=== PATIENT | female | born 1960 | race Caucasian/White ===

== ENCOUNTER 2023-11-13 08:31 | Emergency (ER) | payer MEDICAID ==
[~2023-11-13] VITALS: Ht 167.6 cm; Wt 70.3 kg
[~2023-11-13 08:31] MED LIST: LEVSOD75 PO; PSEUDOEPHEDRINE30 M1 PO
[2023-11-13] MEDS ORDERED: Albuterol 2.5 MG/3 ML VIAL INH SCH ×2 (08:55→11:20)
[2023-11-13] MEDS ORDERED: Ipratropium Bromide INH 0.02% 0.5 mg/2.5ML Vial INH SCH ×2 (08:55→11:15)
[2023-11-13] MEDS ORDERED: PRED20 PO (10:05)
[2023-11-13] MEDS ORDERED: PredniSONE 20 MG Tab PO ONE (10:10)
[2023-11-13 10:29] LABS: Influenza A, PCR NEGATIVE (NEGATIVE); Influenza B, PCR NEGATIVE (NEGATIVE); Resp Syncytial Virus, PCR NEGATIVE (NEGATIVE)
[2023-11-13 11:49] LABS: SARS-Cov-2 (COVID-19) PCR, MMC POSITIVE (NEGATIVE)
[2023-11-13] MEDS ORDERED: ALBU90OI INH (12:39)
[2023-11-13] MEDS ORDERED: Albuterol HFA200 ACT/6.7 GM INH INH PRN (12:40)
== END 2023-11-13 12:56 | disposition home or self-care (01) ==
LOC: ER 08:31
PROVIDERS: Physician Assistant
DX: U07.1 COVID-19 (principal); J45.901 Unspecified asthma with (acute) exacerbation; F17.210 Nicotine dependence, cigarettes, uncomplicated; E03.9 Hypothyroidism, unspecified; Z79.899 Other long term (current) drug therapy
CPT/HCPCS: 0241U; 71046; 94644; 94645; 94664; 99284-25; J7512